=== PATIENT | female | born 1985 | race Two or more races ===

== ENCOUNTER 2018-12-16 09:47 | Emergency (ER) | payer MEDICAID ==
[~2018-12-16] VITALS: Ht 162.6 cm; Wt 65.3 kg
[2018-12-16 09:55] VITALS: BP 114/79
--- NOTE | 2018-12-16 10:19 | NUR ---
URINE SPECIMEN COLLECTED AND SENT TO LAB.
[2018-12-16] MEDS ORDERED: KETOROLAC TROMETHAMINE INJ 30 MG/ML VIAL ONE (10:29)
[2018-12-16] MEDS ORDERED: KETOROLAC TROMETHAMINE INJ 60 MG/2 ML VIAL IM ONE (10:30)
--- NOTE | 2018-12-16 10:52 | NUR ---
Patient discharged to home in stable condition. Written and verbal after care instructions given. Patient verbalizes understanding of instruction.
== END 2018-12-16 10:56 | disposition home or self-care (01) ==
LOC: ER 09:49
DX: M54.5 Low back pain (principal); F41.9 Anxiety disorder, unspecified; Z60.2 Problems related to living alone; Z88.1 Allergy status to other antibiotic agents
CPT/HCPCS: 84703; 96372; 99283; J1885

== ENCOUNTER 2019-04-03 06:29 | Emergency (ER) | payer SELFPAY ==
[~2019-04-03] VITALS: Ht 162.6 cm; Wt 65.8 kg
[2019-04-03 06:40] VITALS: BP 90/71
--- NOTE | 2019-04-03 06:40 | NUR ---
PT BIBSELF C/O BACK PAIN X1 WEEK. HX SPINAL FUSION. DENIES RECENT TRAUMA. PT AMBULATORY. NAD NOTED. RESP EVEN AND UNLABORED. PT ON MONITOR IN BED 2. WILL CONTINUE TO MONITOR.
[2019-04-03] MEDS ORDERED: KETOROLAC TROMETHAMINE INJ 30 MG/ML VIAL ONE (07:09)
[2019-04-03] MEDS ORDERED: KETOROLAC TROMETHAMINE INJ 60 MG/2 ML VIAL IM ONE (07:30)
== END 2019-04-03 07:22 | disposition home or self-care (01) ==
LOC: ER 06:29
DX: M54.5 Low back pain (principal); Z98.890 Other specified postprocedural states; Z88.1 Allergy status to other antibiotic agents; Z60.2 Problems related to living alone
CPT/HCPCS: 96372; 99283; J1885

== ENCOUNTER 2019-10-18 18:06 | Emergency (ER) | payer SELFPAY ==
[~2019-10-18] VITALS: Ht 162.6 cm; Wt 68.9 kg
[2019-10-18] MEDS ORDERED: DEXAMETHASONE SOD PHOSPHATE 10 MG/ML VIAL ONE (19:59)
[2019-10-18] MEDS ORDERED: KETOROLAC TROMETHAMINE INJ 30 MG/ML VIAL ONE (19:59)
[2019-10-18] MEDS ORDERED: KETOROLAC TROMETHAMINE INJ 60 MG/2 ML VIAL IM ONE (20:00)
[2019-10-18] MEDS ORDERED: DEXAMETHASONE SOD PHOSPHATE 4 MG/ML VIAL IM ONE (20:00)
[2019-10-18 20:09] VITALS: BP 133/80
--- NOTE | 2019-10-18 20:09 | NUR ---
Patient discharged to home in stable condition. Written and verbal after care instructions given. Patient verbalizes understanding of instruction.
== END 2019-10-18 20:12 | disposition home or self-care (01) ==
LOC: ER 18:09
DX: S16.1XXA Strain of muscle, fascia and tendon at neck level, initial encounter (principal); S39.012A Strain of muscle, fascia and tendon of lower back, initial encounter; M62.830 Muscle spasm of back; G89.29 Other chronic pain; Z98.890 Other specified postprocedural states; Z88.1 Allergy status to other antibiotic agents; Z60.2 Problems related to living alone; V49.49XA Driver injured in collision with other motor vehicles in traffic accident, initial encounter; Y93.89 Activity, other specified; Y92.488 Other paved roadways as the place of occurrence of the external cause; Y99.8 Other external cause status
CPT/HCPCS: 96372 ×2; 99283; J1100; J1885

== ENCOUNTER 2021-02-18 01:57 | Emergency (ER) | payer OTHER ==
[~2021-02-18] VITALS: Ht 162.6 cm; Wt 61.2 kg
[2021-02-18 02:15] VITALS: BP 131/74
[2021-02-18] MEDS ORDERED: ALBU8.5H8 INH (02:53)
[2021-02-18] MEDS ORDERED: PRED50TA PO (02:53)
[2021-02-18] MEDS ORDERED: ALBU2.5V38 NEB (02:53)
[2021-02-18] MEDS ORDERED: DEXAMETHASONE SOD PHOSPHATE 10 MG/ML VIAL ONE (02:58)
[2021-02-18] MEDS ORDERED: KETOROLAC TROMETHAMINE INJ 60 MG/2 ML VIAL IM ONE (02:58)
[2021-02-18] MEDS: KETOROLAC TROMETHAMINE INJ 60 MG/2 ML VIAL IM ONE (03:09)
[2021-02-18] MEDS: DEXAMETHASONE SOD PHOSPHATE 4 MG/ML VIAL IM ONE (03:09)
== END 2021-02-18 03:27 | disposition home or self-care (01) ==
LOC: ER 01:57
DX: J98.01 Acute bronchospasm (principal); Z98.890 Other specified postprocedural states; Z88.1 Allergy status to other antibiotic agents; Z60.2 Problems related to living alone
CPT/HCPCS: 71045; 96372 ×2; 99284; J1100; J1885

== ENCOUNTER 2021-11-04 18:50 | Emergency (ER) | payer OTHER ==
[~2021-11-04] VITALS: Ht 162.6 cm; Wt 63.5 kg
[~2021-11-04 18:50] MED LIST: ALBU2.5V38 NEB; ALBU8.5H8 INH; PRED50TA PO
[2021-11-04] MEDS ORDERED: MAG HYDROX/AL HYDROX/SIMETH 30 ML UDC ONE (19:45)
--- NOTE | 2021-11-04 19:48 | NUR ---
PATIENT BIBS C/O "Abdominal pain/Epigastric radiating all over abdomen on/off for the past couple months. felt worst today. pt a/o x 4 rr even and unlabored, no sob noted. patient connected to monitors.
--- NOTE | 2021-11-04 19:50 | NUR ---
WOOD GLUER AT BEDSIDE
--- NOTE | 2021-11-04 19:55 | NUR ---
URINE SPECIMEN SENT TO LAB
[2021-11-04] MEDS ORDERED: MAG HYDROX/AL HYDROX/SIMETH 30 ML UDC PO ONE (20:00)
[2021-11-04 20:03] LABS: BASOPHILS # (AUTO) 0.1 K/uL (0.0-0.2); BASOPHILS % (AUTO) 0.9 % (0.0-2.0); EOSINOPHILS % (AUTO) 1.9 % (0.0-6.0); HEMATOCRIT 39 % (33-45); HEMOGLOBIN 12.9 g/dL (11.5-14.8); LYMPHOCYTES # (AUTO) 2.2 K/uL (0.8-4.8); LYMPHOCYTES % (AUTO) 30.7 % (20.0-44.0); MEAN CORPUSCULAR HGB CONC 33 g/dl (31.0-36.0); MEAN CORPUSCULAR VOLUME 97 fL (82-100); MONOCYTES # (AUTO) 0.6 K/uL (0.1-1.30); MONOCYTES % (AUTO) 7.9 % (2.0-12.0); NEUTROPHILS # (AUTO) 4.3 K/uL (1.8-8.9); NEUTROPHILS % (AUTO) 58.6 % (43.0-81.0); PLATELET COUNT (AUTO) 193 K/uL (150-450); RED BLOOD CELL COUNT(AUTO) 3.99 MIL/uL (4.0-5.2); WHITE BLOOD COUNT (AUTO) 7.3 K/uL (4.3-11.0)
[2021-11-04 20:11] LABS: BILIRUBIN,URINE NEGATIVE (NEGATIVE); COLOR,URINE YELLOW (YELLOW); LEUKOCYTE ESTERASE ,URINE NEGATIVE (NEGATIVE); NITRITE, URINE NEGATIVE (NEGATIVE); PROTEIN,URINE NEGATIVE (NEGATIVE); UGLUCOSE NEGATIVE (NEGATIVE)
[2021-11-04 20:15] LABS: CALCIUM, SERUM 8.3 mg/dL (8.5-10.1); CREATININE 0.8 mg/dL (0.6-1.3); POTASSIUM 3.8 mmol/L (3.5-5.1)
--- NOTE | 2021-11-04 20:18 | NUR ---
WILL OF GALLBLADDER DONE AT BEDSIDE
[2021-11-04 20:21] LABS: ALBUMIN 3.7 g/dL (3.4-5.0); BILIRUBIN,DIRECT 0.1 mg/dL (0.0-0.2); BILIRUBIN,TOTAL 0.2 mg/dL (0.2-1.0); TOTAL PROTEIN, SERUM 6.9 g/dL (6.4-8.2)
[2021-11-04 20:24] LABS: BACTERIA,URINE None seen /HPF (None Seen); RBC,URINE 0-2 /HPF (0-2); WBC,URINE 0-2 /HPF (0-3)
--- NOTE | 2021-11-04 20:30 | NUR ---
SEEN BY DR CRESPO AT BEDSIDE
[2021-11-04] MEDS ORDERED: OMEP40CA21 PO (20:34)
--- NOTE | 2021-11-04 20:50 | NUR ---
PATIENT STILL IN PAIN, ER MD ORDERED PAIN MEDS IM.
[2021-11-04] MEDS ORDERED: KETOROLAC TROMETHAMINE INJ 30 MG/ML VIAL ONE (20:51)
--- NOTE | 2021-11-04 20:57 | NUR ---
Patient discharged to home in stable condition. Written and verbal after care instructions given. Patient verbalizes understanding of instruction.
[2021-11-04 20:58] VITALS: BP 143/63
[2021-11-04] MEDS ORDERED: KETOROLAC TROMETHAMINE INJ 30 MG/ML VIAL IM ONE (21:00)
== END 2021-11-04 21:01 | disposition home or self-care (01) ==
LOC: ER 18:51
DX: R10.13 Epigastric pain (principal); J45.909 Unspecified asthma, uncomplicated; M43.26 Fusion of spine, lumbar region; Z88.1 Allergy status to other antibiotic agents; Z79.52 Long term (current) use of systemic steroids; Z79.51 Long term (current) use of inhaled steroids; Z60.2 Problems related to living alone
CPT/HCPCS: 36415; 76705; 80048; 80076; 81001; 83690; 84703; 85025; 96372; 99284; J1885

== ENCOUNTER 2021-12-04 20:12 | Emergency (ER) | payer OTHER ==
[~2021-12-04] VITALS: Ht 162.6 cm; Wt 63.5 kg
[~2021-12-04 20:12] MED LIST changes: +OMEP40CA21 PO
--- NOTE | 2021-12-04 20:21 | NUR ---
PT BIBSELF C/O ALLERGIC REACTION. ACCIDENTALLY ATE MUSHROOM. C/O TONGUE SWELLING & TIGHTNESS TO THROAT. PT A/OX4. TOLERATING R/A AT 97%. CONNECTED PT TO POX AND MONITOR
[2021-12-04] MEDS ORDERED: FAMOTIDINE/PF INJ 20 MG/2 ML VIAL IV ONE ×2 (20:28→20:30)
[2021-12-04] MEDS ORDERED: diphenhydrAMINE HCL 50 MG/ML VIAL ONE (20:28)
[2021-12-04] MEDS ORDERED: EPINEPHRINE (1:1000) 1 MG/ML AMPUL ONE (20:28)
[2021-12-04] MEDS ORDERED: diphenhydrAMINE HCL 50 MG/ML VIAL IV ONE (20:30)
[2021-12-04] MEDS ORDERED: EPINEPHRINE (1:1000) MDV 30 MG/30ML VIAL SUBCUT ONE (20:30)
--- NOTE | 2021-12-04 20:34 | NUR ---
RAC #20G S/L; PATENT AND INTACT
--- NOTE | 2021-12-04 23:49 | NUR ---
Patient discharged to home in stable condition. Written and verbal after care instructions given. Patient verbalizes understanding of instruction. PT ambulatory with a steady gait IV removed. Catheter intact and site benign. Pressure and 4x4 applied to site. No bleeding noted.
[2021-12-04 23:50] VITALS: BP 118/72
== END 2021-12-04 23:51 | disposition home or self-care (01) ==
LOC: ER 20:20
DX: T78.04XA Anaphylactic reaction due to fruits and vegetables, initial encounter (principal); G43.909 Migraine, unspecified, not intractable, without status migrainosus; J45.909 Unspecified asthma, uncomplicated; Z88.8 Allergy status to other drugs, medicaments and biological substances; Z91.018 Allergy to other foods; Z60.2 Problems related to living alone; Z79.52 Long term (current) use of systemic steroids; Z79.51 Long term (current) use of inhaled steroids; Z79.899 Other long term (current) drug therapy
CPT/HCPCS: 96372; 96374; 96375; 99285; J0171 ×2; J1200; J3490

== ENCOUNTER 2021-12-05 19:34 | Emergency (ER) | payer OTHER ==
[~2021-12-05] VITALS: Ht 162.6 cm; Wt 67.1 kg
[2021-12-05 20:46] VITALS: BP 115/73
== END 2021-12-05 21:14 | disposition home or self-care (01) ==
LOC: ER 19:42
DX: R59.0 Localized enlarged lymph nodes (principal); G43.909 Migraine, unspecified, not intractable, without status migrainosus; J45.909 Unspecified asthma, uncomplicated; F17.200 Nicotine dependence, unspecified, uncomplicated; Z88.8 Allergy status to other drugs, medicaments and biological substances; Z91.018 Allergy to other foods; Z60.2 Problems related to living alone; Z79.52 Long term (current) use of systemic steroids; Z79.51 Long term (current) use of inhaled steroids; Z79.899 Other long term (current) drug therapy